=== PATIENT | female | born 1980 | race Caucasian/White ===

== ENCOUNTER 2017-12-28 21:58 | Emergency (ER) | payer BC ==
[~2017-12-28] VITALS: Ht 167.6 cm; Wt 68.0 kg
[2017-12-28] MEDS ORDERED: PERCOCET 5/31 TABLET PO (23:11)
[2017-12-29 00:18] VITALS: BP 129/79
[2017-12-29] MEDS ORDERED: EFFEXOR75 MG PO (15:19)
== END 2017-12-29 00:19 | disposition home or self-care (01) ==
LOC: EME 21:58 → EDBD 21:58 → EME 12-29 00:19
PROC: 0QSHXZZ Reposition Left Tibia, External Approach (ICD-10-PCS; principal; 2017-12-28)
PROC: 2W3RX1Z Immobilization of Left Lower Leg using Splint (ICD-10-PCS; principal; 2017-12-28)
DX: S82.852A Displaced trimalleolar fracture of left lower leg, initial encounter for closed fracture (principal); W03.XXXA Other fall on same level due to collision with another person, initial encounter; Y93.51 Activity, roller skating (inline) and skateboarding; Y92.331 Roller skating rink as the place of occurrence of the external cause; F32.9 Major depressive disorder, single episode, unspecified
CPT/HCPCS: 73600; 73610; 99281; 99284; J2060; J2405; J3010

== ENCOUNTER 2018-01-02 11:03 | Day surgery (SDC) | payer BC ==
[~2018-01-02] VITALS: Ht 167.6 cm; Wt 72.0 kg
[~2018-01-02 11:03] MED LIST: EFFEXOR75 MG PO; PERCOCET 5/31 TABLET PO
[2018-01-02 11:43] VITALS: BP 118/79
[2018-01-02 17:40] VITALS: BP 141/64
[2018-01-02 18:40] VITALS: BP 119/62
[2018-01-02 19:45] VITALS: BP 118/71
== END 2018-01-02 19:45 | disposition home or self-care (01) ==
LOC: SDC 11:03
DX: S82.872A Displaced pilon fracture of left tibia, initial encounter for closed fracture (principal); X58.XXXA Exposure to other specified factors, initial encounter
CPT/HCPCS: 73600; 76000; C1713; J0131; J0330; J0690; J1100; J1885; J2250; J2405; J2710; J2795; J3010; J7643